=== PATIENT | male | born 1950 | race Caucasian/White ===

== ENCOUNTER 2019-10-09 11:12 | Emergency (ER) | payer MEDICARE ==
[~2019-10-09] VITALS: Ht 172.7 cm; Wt 99.7 kg
[2019-10-09 11:28] VITALS: BP 152/87
[2019-10-09] MEDS ORDERED: HCTZ25T PO (12:34)
[2019-10-09] MEDS ORDERED: AMLO10TA PO (12:34)
[2019-10-09] MEDS ORDERED: LISI10TA4 PO (12:34)
== END 2019-10-09 12:39 | disposition home or self-care (01) ==
LOC: ER 11:13
DX: I10 Essential (primary) hypertension (principal); Z79.899 Other long term (current) drug therapy; Z76.0 Encounter for issue of repeat prescription
CPT/HCPCS: 99281; 99283